=== PATIENT | female | born 1980 | race Caucasian/White ===

== ENCOUNTER 2023-12-24 17:32 | Emergency (ER) | payer SELFPAY ==
[~2023-12-24] VITALS: Ht 160 cm; Wt 150.0 kg
[~2023-12-24 17:32] MED LIST: MOTRIN 800800 MG/TAB PO; NORCO 325 MG-51 TAB PO; NORVASC 10MG10 MG PO
[2023-12-24 17:41] VITALS: TEMP 98.5
[2023-12-24] MEDS ORDERED: Ketorolac 30 MG/ML VIAL IV ONE (18:45)
[2023-12-24] MEDS ORDERED: fentaNYL 50 MCG/ML 2 ML VIAL IV ONE (18:45)
[2023-12-24 19:32] LABS: BASO # 0.1 K/mm3 (0.0-0.2); BASO % 0.5 % (0.0-2.0); EOS # 0.2 K/mm3 (0.0-0.7); EOS % 1.8 % (0.0-4.0); GRAN # 7.2 K/mm3 (1.4-6.5); GRAN % 64.5 % (42.2-75.2); HEMATOCRIT 41.4 % (37.0-47.0); HEMOGLOBIN 13.9 g/dl (12.5-16.0); LYMPH # 2.3 K/mm3 (1.2-3.4); LYMPH % 20.6 % (20.0-51.0); MEAN CELL VOLUME 80 fl (80.0-100.0); MEAN CORPUSCULAR HEMOGLOBIN 27 pg (27-31); MEAN CORPUSCULAR HGB CONC 34 g/dl (33.0-37.0); MEAN PLATELET VOLUME 8.3 fl (7.4-10.4); MONO # 1.4 K/mm3 (0.1-0.6); MONO % 12.2 % (1.7-9.3); PLATELET COUNT 371 K/mm3 (130-400); REDCELL DISTRIBUTION WIDTH-CV 15.4 % (11.5-14.5)
[2023-12-24] MEDS ORDERED: Iohexol 300 - 100 ML VIAL IV ONE (19:51)
[2023-12-24] MEDS ORDERED: NS 64 ML IV SCH (19:51)
[2023-12-24 19:54] LABS: BILIRUBIN,TOTAL 0.8 mg/dL (0.2-1.2); CALCIUM 10.3 mg/dL (8.4-10.2); CREATININE, serum 1.37 mg/dL (0.57-1.11); TOTAL PROTEIN 7.5 g/dl (6.2-8.1)
[2023-12-24 19:56] LABS: POTASSIUM 2.9 mEq/L (3.5-4.5)
[2023-12-24] MEDS ORDERED: FLEXERIL 1010 MG/TAB PO (21:23)
[2023-12-24] MEDS ORDERED: NORCO 325 MG-51 TAB PO (21:23)
[2023-12-24] MEDS ORDERED: Home HYDROcodone/Acetaminophen 5/325 MG #4 TABS/PACK PO ONE (21:30)
[2023-12-24 21:35] VITALS: BP 137/104; PULSE 98
== END 2023-12-24 21:35 | disposition home or self-care (01) ==
LOC: COL.ER 17:32
PROVIDERS: Physician Assistant
DX: S22.071A Stable burst fracture of T9-T10 vertebra, initial encounter for closed fracture (principal); E66.9 Obesity, unspecified; W01.0XXA Fall on same level from slipping, tripping and stumbling without subsequent striking against object, initial encounter
CPT/HCPCS: J1885; J3010; J3360; Q9967